=== PATIENT | female | born 1955 | race Caucasian/White ===

== ENCOUNTER 2017-08-30 05:54 | Day surgery (SDC) | payer OTHER ==
[~2017-08-30] VITALS: Ht 157.5 cm; Wt 80.7 kg
--- NOTE | 2017-08-30 09:13 | NUR ---
08/30/17 0913 CHURCHILL,JERSEY Tilley 0855: INTERMITTENT ORAL SUCTIONING FOR SECRETIONS. ORAL AIRWAY REMOVED. 0858: O2 MASK REMOVED. PATIENT ON ROOM AIR.
--- NOTE | 2017-08-30 09:38 | NUR ---
RETURNED TO ROOM FROM PACU CAREGIVERS IN ROOM. PT TALKING SMALL AMT EMESIS YELLOW THICK. SMALL AMT BLOOD FROM NOSE WHEN SNEEZED. CLEANED PT UP.
[2017-08-30] MEDS ORDERED: ACETAMINOPHEN500 M4 (09:55)
[2017-08-30] MEDS ORDERED: ARTIFICIAL TEA1 EACH OPTH (09:55)
[2017-08-30] MEDS ORDERED: CALCIUM 600 +1 EACH PO (09:56)
[2017-08-30] MEDS ORDERED: FLUTICASONE PRO16 GM NAS (09:57)
[2017-08-30] MEDS ORDERED: CALCIUM ANTACI200 MG PO (09:57)
[2017-08-30] MEDS ORDERED: GERI-LANTA LIQ355 ML PO (09:58)
[2017-08-30] MEDS ORDERED: NEURONTIN300 MG PO (09:58)
[2017-08-30] MEDS ORDERED: GLUCOSE4 GM PO (09:59)
[2017-08-30] MEDS ORDERED: KLOR-CON 1010 MEQ PO (09:59)
[2017-08-30] MEDS ORDERED: TIROSINT50 MCG PO (10:00)
[2017-08-30] MEDS ORDERED: ATIVAN1 MG PO (10:01)
[2017-08-30] MEDS ORDERED: LOPERAMIDE2 MG PO (10:01)
[2017-08-30] MEDS ORDERED: REMERON30 MG PO (10:02)
[2017-08-30] MEDS ORDERED: PRAZOSIN HCL1 MG PO (10:02)
[2017-08-30] MEDS ORDERED: QUETIAPINE FUM200 M1 PO (10:03)
[2017-08-30] MEDS ORDERED: SERTRALINE HCL100 MG PO (10:04)
[2017-08-30] MEDS ORDERED: RISPERDAL3 MG PO (10:04)
[2017-08-30] MEDS ORDERED: VITAMIN D32000 UNIT PO (10:05)
[2017-08-30] MEDS ORDERED: TRAZODONE HCL50 MG PO (10:05)
--- NOTE | 2017-08-30 10:27 | NUR ---
PT BACK TO BASELINE. WANTS TO GO HOME IS ALREAdy dressed. dcd per wc with caregivers.
--- NOTE | 2017-08-30 10:27 | NUR ---
DR GALEANA CALLED RE MEDICATIONS . TO RESUME MEDS AFTER 1800. THIS PRINTED FOR CARE GIVERS.
== END 2017-08-30 18:00 | disposition home or self-care (01) ==
LOC: DS 05:54
PROVIDERS: Dentist General Practice
PROC: 0CC Mouth and Throat, Extirpation (ICD-10-PCS; 2017-08-30)
PROC: 0CC Mouth and Throat, Extirpation (ICD-10-PCS; principal; 2017-08-30 06:45)
DX: K05.10 Chronic gingivitis, plaque induced (principal); K02.9 Dental caries, unspecified; F25.9 Schizoaffective disorder, unspecified; I10 Essential (primary) hypertension; E11.9 Type 2 diabetes mellitus without complications; G20 Parkinson's disease; Z90.710 Acquired absence of both cervix and uterus; Z98.890 Other specified postprocedural states; Z88.1 Allergy status to other antibiotic agents; Z88.2 Allergy status to sulfonamides; Z88.8 Allergy status to other drugs, medicaments and biological substances; Z79.899 Other long term (current) drug therapy
CPT/HCPCS: 00170; J0330; J1100; J2250; J2370; J2405; J2704; J3010

== ENCOUNTER 2022-12-28 05:25 | Day surgery (SDC) | payer MEDICARE, OTHER ==
[~2022-12-28] VITALS: Ht 157.5 cm; Wt 50.0 kg
[~2022-12-28 05:25] MED LIST: ACETAMINOPHEN500 M4; ARTIFICIAL TEA1 EACH OPTH; ATIVAN1 MG PO; BUSPIRONE HCL15 MG PO; CALCIUM 600 +1 EACH PO; CALCIUM ANTACI200 MG PO; EPIN0.3P IM; FLUTICASONE PRO16 GM NAS; GERI-LANTA LIQ355 ML PO; GLUCOSE4 GM PO; KLOR-CON 1010 MEQ PO; LOPERAMIDE2 MG PO; NEURONTIN300 MG PO; PRAZOSIN HCL1 MG PO; QUETIAPINE FUM200 M1 PO; REMERON30 MG PO; RISPERDAL3 MG PO; SERTRALINE HCL100 MG PO; TIROSINT50 MCG PO; TRAZODONE HCL50 MG PO; VITAMIN D32000 UNIT PO
[2022-12-28 05:51] VITALS: BP 114/76
--- NOTE | 2022-12-28 08:31 | NUR ---
12/28/22 0831 Jazmine Luna 0824 PATIENT ARRIVES TO PACU RESTING WITH EYES CLOSED. RESP EVEN AND UNLABORED, ORAL AIRWAY IN PLACE, BUT PATIENT TRYING TO PUSH AIRWAY OUT WITH TONGUE. ORAL AIRWAY REMOVED. HOB ELEVATED. MASK AT 6 LITERS. 0830 PATIENT AWAKE BUT VERY DROWSY. RESP EVEN AND UNLABORED, MASK OFF. GLASS ON.
[2022-12-28 08:42] VITALS: BP 136/51
[2022-12-28 09:48] VITALS: BP 119/60
--- NOTE | 2022-12-28 11:35 | NUR ---
LE 0930 CALL LIGHT ON. PATIENT CAREGIVER SAYS PATIENT PULLED SUTURES OUT. DR GALEANA AT BEDSIDE. DR. GALEANA CLIPPED SUTURE. LE 1010 PATIENT HAS MET DISCHARGE CRITERIA. PATIENT IV D/C'D WNL. PATIENT DISCHARGE GIVEN NO QUESTIONS AT THIS TIME. PATIENT CAREGIVER ASSISTED PATIENT DRESSING. PATIENT WHEELED OUT OF FACILTIY TO PRIVATE AUTO. NO FUTHER NEEDS.
== END 2022-12-28 10:10 | disposition home or self-care (01) ==
LOC: DS 05:25 → OPS 05:25 → DS 07:00 → OPS 10:10
PROVIDERS: ATTEND Dentist General Practice
PROC: 0CDWXZ1 Extraction of Upper Tooth, Multiple, External Approach (ICD-10-PCS; principal; 2022-12-28 07:00)
DX: S02.5XXA Fracture of tooth (traumatic), initial encounter for closed fracture (principal); K05.6 Periodontal disease, unspecified; K04.7 Periapical abscess without sinus
CPT/HCPCS: 70320; J0330; J1100; J2250; J2310; J2405; J2704; J3010; J3490

== ENCOUNTER 2025-05-14 06:55 | Day surgery (SDC) | payer MEDICARE, OTHER ==
[~2025-05-14] VITALS: Ht 157.5 cm; Wt 71.0 kg
[~2025-05-14 06:55] MED LIST changes: +LACTATED RINGER'S 1,000 ML IV SCH; +LACTULOSE10 GM/152 PO; +OMEPRAZOLE20 MG PO; +POLYVINYL ALCOH15 ML OPTH
[2025-05-14] MEDS ORDERED: LIDOCAINE HCL 1% 5 ML SDV INJ ONE (07:00)
[2025-05-14] MEDS ORDERED: IBLOOD GLUCOSE TEST STRIP 1 EA TEST VI PRN ×2 (07:00→09:30)
[2025-05-14 07:23] VITALS: BP 144/92
[2025-05-14] MEDS ORDERED: ACETAMINOPHEN500 MG PO (07:37)
[2025-05-14] MEDS ORDERED: CRANBERRY250 MG PO (07:38)
[2025-05-14] MEDS ORDERED: BUSPIRONE HCL10 MG PO (07:38)
[2025-05-14] MEDS ORDERED: CALCIUM +D & M1 EACH PO (07:39)
[2025-05-14] MEDS ORDERED: ENULOSE10 GM/15 M PO (07:42)
[2025-05-14] MEDS ORDERED: FLUTICASONE PRO16 GM NAS (07:43)
[2025-05-14] MEDS ORDERED: GABAPENTIN300 MG PO (07:44)
[2025-05-14] MEDS ORDERED: MIRTAZAPINE45 MG PO (07:45)
[2025-05-14] MEDS ORDERED: LOPERAMIDE2 MG PO (07:45)
[2025-05-14] MEDS ORDERED: MUCINEX1200 MG PO (07:46)
[2025-05-14] MEDS ORDERED: GAVILAX17 GM PO (07:47)
[2025-05-14] MEDS ORDERED: QUETIAPINE FUM400 M1 PO (07:47)
[2025-05-14] MEDS ORDERED: SERTRALINE HCL100 MG PO (07:48)
[2025-05-14] MEDS ORDERED: VITAMIN D350 MCG PO (07:50)
[2025-05-14] MEDS ORDERED: TUMS200 MG PO (07:50)
[2025-05-14] MEDS ORDERED: SEVOFLURANE 250 ML BTL INH ONE (08:23)
[2025-05-14] MEDS ORDERED: LIDOCAINE HCL 2% 5 ML SDV ONE (08:38)
[2025-05-14] MEDS ORDERED: ROCURONIUM BROMIDE 50 MG/5 ML SYR ONE (08:38)
[2025-05-14] MEDS ORDERED: fentaNYL citrate 100 MCG/2 ML VIAL ONE (08:38)
[2025-05-14] MEDS ORDERED: OXYMETAZOLINE HCL 30 ML BTL ONE (08:50)
[2025-05-14] MEDS ORDERED: DEXAMETHASONE SOD PHOS 4 MG/ML VIAL ONE (09:08)
[2025-05-14] MEDS ORDERED: NALOXONE HCL 0.4 MG SYR IV PRN (09:30)
[2025-05-14] MEDS ORDERED: fentaNYL citrate 50 MCG/ML SDV IV PRN (09:30)
[2025-05-14] MEDS ORDERED: SUGAMMADEX SODIUM 200 MG/2 ML ML ONE (09:44)
[2025-05-14] MEDS ORDERED: ACETAMINOPHEN 1,000 MG/100 ML VIAL ONE (09:44)
--- NOTE | 2025-05-14 10:12 | NUR ---
05/14/25 1012 Sheets,Alka 1006 PT ARRIVED TO PACU ON 6L VIA MASK, RESP EVEN AND UNLABORED WITH ORAL AIRWAY IN PLACE, RESP SHALLOW. HOB INCREASED SLIGHTLY.
[2025-05-14 10:36] VITALS: BP 136/77
--- NOTE | 2025-05-14 10:39 | NUR ---
1030- PT ARRIVES FROM PACU. PT REQUESTING APPLE JUICE AND APPLE SAUCE. VITAL SIGNS OBATINED. PT REPORTS PAIN, BUT UNABLE TO GIVE NUMBER. FACE PAIN SCALE NOTED. PT COUGHING OFF AND ON. BED IS LOCKED IN THE LOWEST POSITION. CALL LIGHT IN REACH. LR INFUSING. PT WANTING TO GO HOME. PT IS ORIENTED TO DAY SURGERY AND DISCHARGE CRITERIA DISCUSSED.
[2025-05-14] MEDS ORDERED: fentaNYL citrate 100 MCG/2 ML VIAL IV PRN (11:00)
[2025-05-14 11:42] VITALS: BP 147/76
--- NOTE | 2025-05-14 11:43 | EKG ---
[facility] [address] [facility] [place], [place] [address] Signed Sinus rhythm with 1st degree AV block Left axis deviation Incomplete right bundle branch block Possible Anterior infarct , age undetermined Abnormal ECG No previous ECGs available Confirmed by PACHECO NAJERA MD ([id number]) on 05/14/2025 11:42:48 AM Electronically Signed By: PACHECO NAJERA 05/14/25 1143 PATIENT NAME: BURTON WARD Electrocardiogram DATE OF : 53 PHYSICIAN: PACHECO NAJERA REPORT #: [id number] REPORT IS CONFIDENTIAL AND NOT TO BE RELEASED WITHOUT AUTHORIZATION
--- NOTE | 2025-05-14 11:45 | NUR ---
1140- PT HAS EATEN JELLO AND APPLE SAUCE AND DRANK JUICE. PT REPORTS THAT SHE IS "HUNGRY" AND "FEELS BETTER". IV REMOVED. PT IS DRESSED BY CAREGIVERS AT BEDSIDE. PT IS IN HER PERSONAL WHEELCHAIR AND IS ABLE TO VOID CLEAR YELLOW URINE. ALL DISCHARGE CRITERIA MET. VITAL SIGNS OBTAINED. PT IS WHEELED OUT BY CAREGIVERS AND WHEELCHAIR VAN AT THE FRONT OF THE HOSPITAL. ALL QUESTIONS AND CONCERNS ANSWERED.
== END 2025-05-14 11:40 | disposition home or self-care (01) ==
LOC: OPS 06:55 → DS 06:55 → OPS 09:45
PROVIDERS: ATTEND Dentist General Practice
PROC: 0CRWXJ0 Replacement of Upper Tooth, Single, with Synthetic Substitute, External Approach (ICD-10-PCS; principal; 2025-05-14 10:00)
DX: K02.9 Dental caries, unspecified (principal); E11.9 Type 2 diabetes mellitus without complications; I10 Essential (primary) hypertension; Z88.1 Allergy status to other antibiotic agents; Z88.0 Allergy status to penicillin; Z91.030 Bee allergy status; Z91.0110 Allergy to milk products, unspecified; Z88.8 Allergy status to other drugs, medicaments and biological substances
CPT/HCPCS: 01112; 93005; 93010; J0131; J1100; J2003; J2405; J2704; J3010; J3490; J7121